=== PATIENT | male | born 1995 | race Caucasian/White ===

== ENCOUNTER 2022-01-09 02:42 | Emergency (ER) | payer OTHER ==
[~2022-01-09] VITALS: Ht 170.2 cm; Wt 73.0 kg
--- NOTE | 2022-01-09 02:52 | NUR ---
[facility] FOR OK TO BOOK, NO MEDICAL COMPLAINT AT THIS TIME. AFEBRILE. TOLERATING R/A WELL WITH NO SOB; RESP EVEN AND NON LABORED.
[2022-01-09 02:54] VITALS: BP 131/76
--- NOTE | 2022-01-09 02:54 | NUR ---
COVID ANTIGEN SWAB COLLECTED AND SENT TO LAB
== END 2022-01-09 03:31 ==
LOC: ER 02:46
DX: Z20.822 Contact with and (suspected) exposure to COVID-19 (principal); Z02.89 Encounter for other administrative examinations
CPT/HCPCS: 99283; 87426; C9803